=== PATIENT | female | born 1985 | race Caucasian/White ===

== ENCOUNTER 2016-09-06 04:47 | Emergency (ER) | payer OTHER ==
[~2016-09-06] VITALS: Ht 175.3 cm; Wt 74.8 kg
[2016-09-06] MEDS ORDERED: IV NORMAL SALINE 1000 ML BAG IV ONE ×2 (05:15→06:00)
[2016-09-06] MEDS ORDERED: ONDANSETRON 4 MG/2 ML VIAL IV ONE (05:15)
[2016-09-06] MEDS ORDERED: LOPERAMIDE HCL 2 MG CAPSULE PO ONE (05:15)
--- NOTE | 2016-09-06 05:20 | NUR ---
PATIENT WALKED INTO ER C/O N/V/D X3 DAYS. PATIENT C/O UNABLE TO "HOLD ANYTHING DOWN AND WATERY DIARRHEA." ALSO PATIENT C/O ABDOMINAL PAIN RADIATING TO RIGHT FLANK DECRIBING PAIN CRAMP,ACHING PAIN
[2016-09-06] MEDS ORDERED: LOPERAMIDE HCL 2 MG CAPSULE ONE (05:27)
[2016-09-06] MEDS ORDERED: ONDANSETRON 4 MG/2 ML VIAL ONE (05:27)
[2016-09-06] MEDS ORDERED: KETOROLAC TROMETHAMINE 30 MG INJ ONE (05:28)
[2016-09-06] MEDS ORDERED: KETOROLAC TROMETHAMINE 30 MG INJ IVP ONE (05:30)
[2016-09-06 05:34] LABS: BASOPHILS % (AUTO) 0.1 % (0.0-2.0); EOSINOPHILS # (AUTO) 0.1 K/uL (0.0-0.7); EOSINOPHILS % (AUTO) 0.7 % (0.0-7.0); HEMATOCRIT 45.6 % (37-47); HEMOGLOBIN 15.8 G/DL (12.0-16.0); LYMPHOCYTES # (AUTO) 0.3 K/UL (0.8-4.8); LYMPHOCYTES % (AUTO) 4.2 % (20.5-51.5); MEAN CORPUSCULAR HEMOGLOBIN 29.9 UUG (27.0-31.0); MEAN CORPUSCULAR HGB CONC 35 g/dL (32.0-37.0); MEAN CORPUSCULAR VOLUME 86.5 FL (81.0-99.0); MONOCYTES # (AUTO) 0.6 K/UL (0.1-1.30); MONOCYTES % (AUTO) 7.1 % (0.0-11.0); NEUTROPHILS # (AUTO) 7.3 K/UL (1.8-8.9); NEUTROPHILS % (AUTO) 87.9 % (38.5-71.5); PLATELET COUNT (AUTO) 163 K/UL (150-450); RED BLOOD CELL COUNT(AUTO) 5.27 MIL/UL (4.2-5.4); WHITE BLOOD COUNT (AUTO) 8.3 K/UL (4.0-11.2)
[2016-09-06 05:44] LABS: ALANINE AMINOTRANSFERASE 17 U/L (14-59); ALKALINE PHOSPHATASE 54 U/L (50-136); ASPARTATE AMINOTRANSFERASE 18 U/L (15-37); BILIRUBIN,DIRECT 0.1 mg/dL (0.0-0.2); BILIRUBIN,TOTAL 0.5 mg/dL (0.2-1.0); CARBON DIOXIDE 25 mmol/L (21-32); CHLORIDE 100 mmol/L (98-107); CREATININE 0.9 mg/dL (0.6-1.3); GLUCOSE 117 mg/dL (74-106); POTASSIUM 3.2 mmol/L (3.5-5.1); TOTAL PROTEIN, SERUM 7.7 g/dL (6.4-8.2); UREA NITROGEN, BLOOD 10 mg/dL (7-18)
--- NOTE | 2016-09-06 06:33 | NUR ---
IV removed. Catheter intact and site benign. Pressure and 4x4 gauze applied to site. No bleeding noted.
[2016-09-06 06:37] VITALS: BP 120/77
--- NOTE | 2016-09-06 06:37 | NUR ---
Patient discharged to home in stable conditon WITH TAKING PATIENT HOME. Written and verbal after care instructions given. Patient verbalizes understanding of instructions. WALKED OUT OF ER WITH STEADY GAIT WITH NO DISTRESS NOTED
== END 2016-09-06 06:44 | disposition home or self-care (01) ==
LOC: ER 04:56
DX: A08.4 Viral intestinal infection, unspecified (principal); R10.9 Unspecified abdominal pain; R50.9 Fever, unspecified
CPT/HCPCS: 36415; 80048; 80076; 84702; 85025; 89055; 96361; 96374; 96375; 99284; A4663; J1885; J2405

== ENCOUNTER 2017-06-04 14:06 | Emergency (ER) | payer OTHER ==
[~2017-06-04] VITALS: Ht 172.7 cm; Wt 76.2 kg
--- NOTE | 2017-06-04 15:18 | NUR ---
Patient discharged to home in stable conditon. Written and verbal after care instructions given. Patient verbalizes understanding of instructions.
== END 2017-06-04 15:21 | disposition home or self-care (01) ==
LOC: ER 14:06
DX: O99.511 Diseases of the respiratory system complicating pregnancy, first trimester (principal); O98.511 Other viral diseases complicating pregnancy, first trimester; J20.8 Acute bronchitis due to other specified organisms; B34.9 Viral infection, unspecified; Z3A.01 Less than 8 weeks gestation of pregnancy
CPT/HCPCS: 87400; A4663